=== PATIENT | male | born 1975 | race Caucasian/White ===

== ENCOUNTER 2018-08-24 14:48 | Emergency (ER) | payer SELFPAY ==
[2018-08-24] MEDS ORDERED: BACITRACIN 500 U/GM OIN TOP ONE ×2 (15:51→16:01)
[2018-08-24] MEDS ORDERED: TDAP VACCINE 0.5 ML SUS IM ONE ×2 (15:51→16:01)
[2018-08-24 16:00] VITALS: RESP 18; O2SAT 95
[2018-08-24 16:48] VITALS: BP 124/87; PULSE 90
== END 2018-08-24 16:24 | disposition home or self-care (01) | DRG 605 ==
LOC: ED 14:48
DX: S61.216A Laceration without foreign body of right little finger without damage to nail, initial encounter (principal)
CPT/HCPCS: 12001; 90471; 90715; 99284; A9270-GY